=== PATIENT | male | born 1965 | race Caucasian/White ===

== ENCOUNTER → 2021-08-28 | Day surgery (SDC) | payer OTHER ==
[~2021-08-28] VITALS: Ht 177.8 cm; Wt 88.8 kg
[~2021-08-28] MED LIST: ASPIRIN 81M81 MG/TA2 PO; CLARITIN 1010 MG/TAB PO; KRILL OIL 5001 EACH PO; LIPITOR 10MG10 MG PO; LUTEIN 15 MG-0.1 SGL PO; MASON NATURAL2000 IU PO; ONE-A-DAY ESSE1 EACH PO; PHARMASSURE ZIN50 MG PO; PRILOSEC 20MG20 MG PO; PRINIVIL10 MG PO; VITAMIN FLUSH-F1 CAP PO
[2021-08-28 09:00] VITALS: BP 152/77; PULSE 65; TEMP 97.2
[2021-08-28 12:40] VITALS: BP 112/70; PULSE 64; TEMP 97.5
--- NOTE | 2021-08-28 12:40 | NUR ---
Patient is alert and oriented x4. at bedside. Patient brought back into [facility]. Report recieved from JOYCE Pearce. Patient requesting water right now and would like to rest.
[2021-08-28 12:55] VITALS: BP 123/77; PULSE 77
--- NOTE | 2021-08-28 13:00 | NUR ---
Patient awake and alert x4. Requesting toast at this time. Having some pain in upper back. PRN pain medication given per MAR.
[2021-08-28 13:10] VITALS: BP 140/74; PULSE 66
--- NOTE | 2021-08-28 13:30 | NUR ---
Patient went to restroom. Voided successfully.
[2021-08-28 13:35] VITALS: BP 125/70; PULSE 68
--- NOTE | 2021-08-28 13:36 | NUR ---
Went through discharge instructions with patient and patient's . Verbalized understanding to education. Iv removed and patient got dressed with assistance of his .
[2021-08-28 13:50] VITALS: BP 117/70; PULSE 77
--- NOTE | 2021-08-28 14:10 | NUR ---
Patient having some nausea. Jf De La Vega CRNA notified and orders recieved.
--- NOTE | 2021-08-28 14:15 | NUR ---
Patient's nausea has subsided and has met criteria for discharge.
--- NOTE | 2021-08-28 14:30 | NUR ---
Patient escorted to patient entrance via wheelchair. Met , Peggy, at patient entrance. Patient got into personal vehicle and left in the care of his .
== END ==
LOC: SDCO 07:07
DX: C43.59 Malignant melanoma of other part of trunk (principal); I10 Essential (primary) hypertension; E78.00 Pure hypercholesterolemia, unspecified; K21.9 Gastro-esophageal reflux disease without esophagitis; Z79.82 Long term (current) use of aspirin; Z79.899 Other long term (current) drug therapy; E78.5 Hyperlipidemia, unspecified; M19.90 Unspecified osteoarthritis, unspecified site
CPT/HCPCS: A9520; J0690; J1100; J1885; J2250; J2405; J2704; J3010; J7030; J7120